=== PATIENT | male | born 1995 | race Caucasian/White ===

== ENCOUNTER → 2022-05-14 | Outpatient (CLI) | payer OTHER | LOC: COL.VAS 14:37 | DX: I50.9 Heart failure, unspecified (principal) ==

== ENCOUNTER → 2022-11-14 | Outpatient (CLI) | payer OTHER | LOC: COL.PUL 09:15 | DX: R06.02 Shortness of breath (principal) | CPT/HCPCS: J7674 ==

== ENCOUNTER → 2023-10-16 | Outpatient (CLI) | payer OTHER ==
[~2023-10-16] MED LIST: ADVIL LIQUI-GE200 MG PO; ASPIRIN E.C. 8181 MG PO; ENSTILAR 0.005%60 GM TP; FLEXERIL 1010 MG/TAB PO; GLUCOPHAGE500 MG/TAB PO; LIPITOR 10MG10 MG PO; METHOTREXA2.5 MG/TAB PO; NEURONTIN100 MG/CAP PO; OMEGA-31 SGL PO; PLAVIX 75MG TAB75 MG; PRIL40 PO; PROAIR HFA0.09 MG/AC IH; TREMFYA100 MG/1 M SQ; TYLENOL 500MG500 MG PO; VITAMIN D362.5 MC1 PO; ZYRTEC ALLERGY10 MG PO
== END ==
LOC: COL.RAD 09:22
DX: M51.26 Other intervertebral disc displacement, lumbar region (principal); M48.02 Spinal stenosis, cervical region; M48.05 Spinal stenosis, thoracolumbar region; M89.9 Disorder of bone, unspecified

== ENCOUNTER 2024-03-23 10:30 | Outpatient (RCR) | payer OTHER | END 2024-03-24 | disposition home or self-care (01) | LOC: WSPT | DX: M54.50 Low back pain, unspecified (principal) ==

== ENCOUNTER 2024-04-21 12:45 | Outpatient (RCR) | payer OTHER | END 2024-04-24 | disposition home or self-care (01) | LOC: WSPT | DX: M47.20 Other spondylosis with radiculopathy, site unspecified (principal) ==